=== PATIENT | female | born 1995 | race American Indian/Alaskan Native ===

== ENCOUNTER 2021-11-03 09:23 | Emergency (ER) | payer BC, MEDICAID ==
--- NOTE | 2021-11-03 09:35 | Event Note ---
ED Screening Note ED Screening Note: VAG bleed x3 months since off control, worse 1 month ago. + dizziness, fatigue appt with ob tomorrow This initial assessment/diagnostic orders/clinical plan/treatment(s) is/are subject to change based on patients health status, clinical progression and re- assessment by fellow clinical providers in the ED. Further treatment and workup at subsequent clinical providers discretion. Patient/guardian urged not to elope from the ED as their condition may be serious if not clinically assessed and managed. Initial orders include: LABS
[2021-11-03 10:41] LABS: Hematocrit 35.1 % (30.3-42.9); Hemoglobin 11.2 gm/dl (10.1-14.3); Mean Corpuscular HGB Conc 32 % (30-34); Mean Corpuscular Volume 76 fl (79-97); Platelet Count 506 K/mm3 (140-440); Red Blood Count 4.65 M/mm3 (3.65-5.03)
[2021-11-03 10:48] LABS: Blood Urea Nitrogen 6 mg/dL (7-17); Calcium 9.6 mg/dL (8.4-10.2); Hemolysis Index 0
[2021-11-03 10:53] LABS: BUN/Creatinine Ratio 10
[2021-11-03] MEDS ORDERED: KETOROLAC 10 MG TAB PO ONE (11:12)
--- NOTE | 2021-11-03 12:05 | Ultrasound Report ---
ULTRASOUND PELVIS INDICATION: vaginal bleeding, abdominal pain. TECHNIQUE: Transabdominal and Transvaginal. Duplex Color Doppler used: Yes. COMPARISON: None available FINDINGS: Uterus: Present. Size: 8.1 x 3.8 x 4.7 cm. Endometrial complex: Normal measuring 0.7 cm. Mass lesions: None. Additional findings: Myometrium is thickened scattered echogenic foci. Right Ovary -- Normal. Blood flow: Normal. Cyst or mass: None. Left Ovary-- Normal. Blood flow: Normal. Cyst or mass: 1.5 cm physiologic cyst. Urinary Bladder: Normal. Free Fluid: None. Additional Findings: None. IMPRESSION: 1. Possible adenomyosis. 2. No significant adnexal abnormality. Signer Name: Claudio Irving MD Signed: 11/03/2021 12:01 PM Workstation Name: [email or web address]
--- NOTE | 2021-11-03 12:22 | Emergency Department Report ---
ED Abdominal Pain HPI - General Chief Complaint: Vaginal Bleeding Stated Complaint: VAG BLEEDING , POSS FIBROSIS Time Seen by Provider: 11/03/21 10:28 Source: patient Mode of arrival: Ambulatory Limitations: No Limitations - History of Present Illness Initial Comments: 26-year-old black female with a past medical history of cervical disc surgery presents to the emergency department for evaluation of vaginal bleeding for the past 21 days along with abdominal pain and cramping. She states that she has tried 3 different types of control methods including an IUD, Depo-Provera shot, and appeal and all cause excessive bleeding. She states that for the past few months she has not had any control but started bleeding 21 days ago and has been bleeding since then. She states that she goes through several pads a day and is now having some weakness and dizziness. She states that abdominal pain and cramping is 6 on a 10 point scale. She states that she is scheduled to follow-up with her FIELD SERVICE ANALYST tomorrow but came in because she does not feel like she can wait any longer. MD Complaint: abdominal pain, other (Vaginal bleeding) -: Gradual, days(s) (21) Location: diffuse Migration to: no migration Severity scale (0 -10): 6 Quality: cramping, aching Consistency: intermittent Associated Symptoms: denies: nausea, vomiting, diarrhea, fever, chills, dysuria, hematemesis, hematochezia, melena, hematuria, anorexia, syncope - Related Data Previous Rx's Medication Instructions Recorded Last Taken Type Naproxen 500 mg PO BID 7 Days #14 tab 11/03/21 Unknown Rx Allergies Allergy/AdvReac Type Severity Reaction Status Date / Time No Known Allergies Allergy Unverified 11/03/21 09:29 ED Review of Systems ROS: Stated complaint: VAG BLEEDING , POSS FIBROSIS Other details as noted in HPI Comment: All other systems reviewed and negative Constitutional: weakness. denies: chills, fever, malaise Respiratory: denies: shortness of breath Cardiovascular: denies: chest pain, palpitations Gastrointestinal: abdominal pain, nausea. denies: vomiting, diarrhea, hematemesis, melena, hematochezia Genitourinary: denies: urgency, dysuria Musculoskeletal: denies: as per HPI Skin: denies: rash, lesions Neurological: weakness. denies: headache, numbness, paresthesias, confusion, abnormal gait, vertigo ED Past Medical Hx - Medications Home Medications: Home Medications Medication Instructions Recorded Confirmed Last Taken Type Naproxen 500 mg PO BID 7 Days #14 tab 11/03/21 Unknown Rx ED Physical Exam - General Limitations: No Limitations General appearance: alert, in no apparent distress - Head Head exam: Present: atraumatic, normocephalic - Eye Eye exam: Present: normal appearance - ENT ENT exam: Present: normal exam - Neck Neck exam: Present: normal inspection, full ROM. Absent: tenderness, lymphadenopathy - Respiratory Respiratory exam: Present: normal lung sounds bilaterally. Absent: respiratory distress, wheezes, rales, chest wall tenderness - Cardiovascular Cardiovascular Exam: Present: regular rate, normal heart sounds - GI/Abdominal GI/Abdominal exam: Present: soft, normal bowel sounds. Absent: distended, tenderness, guarding, rebound, rigid - Extremities Exam Extremities exam: Present: normal inspection, full ROM, normal capillary refill. Absent: tenderness, pedal edema, joint swelling, calf tenderness - Back Exam Back exam: Present: normal inspection. Absent: CVA tenderness (R), CVA tenderness (L), vertebral tenderness - Neurological Exam Neurological exam: Present: alert, oriented X3, CN II-XII intact, normal gait - Psychiatric Psychiatric exam: Present: normal affect, normal mood - Skin Skin exam: Present: warm, dry, intact, normal color ED Course Vital Signs 11/03/21 09:24 Temperature 99 F Pulse Rate 98 H Respiratory 16 Rate Blood Pressure 121/71 [Right] O2 Sat by Pulse 99 Oximetry ED Medical Decision Making - Lab Data Result diagrams: 11/03/21 09:37 11/03/21 09:37 - Radiology Data Radiology results: report reviewed, image reviewed Pelvic ultrasound complete with transvaginal: FINDINGS: Uterus: Present. Size: 8.1 x 3.8 x 4.7 cm. Endometrial complex: Normal measuring 0.7 cm. Mass lesions: None. Additional findings: Myometrium is thickened scattered echogenic foci. Right Ovary -- Normal. Blood flow: Normal. Cyst or mass: None. Left Ovary-- Normal. Blood flow: Normal. Cyst or mass: 1.5 cm physiologic cyst. Urinary Bladder: Normal. Free Fluid: None. Additional Findings: None. IMPRESSION: 1. Possible adenomyosis. 2. No significant adnexal abnormality. - Medical Decision Making 26-year-old black female with a past medical history of cervical disc surgery presents to the emergency department for evaluation of vaginal bleeding for the past 21 days along with abdominal pain and cramping. She states that she has tried 3 different types of control methods including an IUD, Depo-Provera shot, and appeal and all cause excessive bleeding. She states that for the past few months she has not had any control but started bleeding 21 days ago and has been bleeding since then. She states that she goes through several pads a day and is now having some weakness and dizziness. She states that abdominal pain and cramping is 6 on a 10 point scale. She states that she is scheduled to follow-up with her FIELD SERVICE ANALYST tomorrow but came in because she does not feel like she can wait any longer. Physical exam unremarkable. Ultrasound positive for probable adeno myosis. Patient will be discharged home with 7-day course of naproxen and advised to follow-up with FIELD SERVICE ANALYST tomorrow as previously planned. She is advised to return to the emergency department as needed. She verbalizes understanding of and agreement with plan of care. Critical care attestation.: If time is entered above; I have spent that time in minutes in the direct care of this critically ill patient, excluding procedure time. ED Disposition Clinical Impression: Adenomyosis, Abnormal vaginal bleeding, Dysmenorrhea Disposition: 01 HOME / SELF CARE / HOMELESS Is pt being admited?: No Does the pt Need Aspirin: No Condition: Stable Instructions: Abnormal Uterine Bleeding, Dysmenorrhea, [id number], Dysfunctio nal Uterine Bleeding Additional Instructions: Take medications as prescribed. Follow-up with FIELD SERVICE ANALYST tomorrow as planned. Return to the emergency department as needed. Prescriptions: Naproxen 500 mg PO BID 7 Days #14 tab Referrals: YOLA MUJICA MD [Staff Physician] - 3-5 Days [facility] [Provider Group] - 3-5 Days Forms: Work/School Release Form(ED) Time of Disposition: 12:33
[2021-11-03 13:09] VITALS: BP 122/65
== END 2021-11-03 13:08 | disposition home or self-care (01) ==
LOC: ED 09:23
DX: N80.0 Endometriosis of uterus (principal); N93.9 Abnormal uterine and vaginal bleeding, unspecified; N94.6 Dysmenorrhea, unspecified
CPT/HCPCS: 36415; 76830; 76856; 80048; 84703; 85027; 99284